=== PATIENT | female | born 1960 | race Hispanic/Latino ===

== ENCOUNTER 2016-08-24 21:37 | Emergency (ER) | payer OTHER ==
[~2016-08-24 21:37] MED LIST: CYCLOBENZAPRINE5 M2 PO; LEVEMIR FLEX100 U/ML SC; NOVOLOG100 U/ML SC
--- NOTE | 2016-08-24 21:42 | ED GENERAL ADULT ---
History of Present Illness General Chief Complaint: Psychiatric Related Complaint Stated Complaint: SI FROM LOCK UP Source: patient, old records, police Exam Limitations: no limitations Vital Signs & Intake/Output Vital Signs & Intake/Output Vital Signs Date Time Temp Pulse Resp B/P Pulse O2 O2 Flow FiO2 Ox Delivery Rate 08/24 2204 98.0 77 18 130/72 99 Room Air Allergies Coded Allergies: MDX - Nka - No Known Allergies (NKA - NO KNOWN ALLERGIES) (08/24/16) Reconcile Medications Cyclobenzaprine HCl 5 MG TABLET 1 TAB PO TIDPRN PRN PAIN Insulin Aspart, Recombinant (Novolog) 100 U/ML DAVIS 10 UNITS SC TIDAC GLUCOSE CONTROL (Reported) Insulin Detemir (Levemir Flexpen) 100 UNIT/ML (3 ML) INSULN.PEN 12 UNITS SC QPM DIABETES (Reported) Triage Nurses Notes Reviewed? yes HPI: Patient involved in an argument with her boyfriend and she was subsequently arrested. Patient told the arresting officer that she might as well thigh. Patient was placed on a PARENT [employer]NER and brought into the emergency department for evaluation. Patient states that she was just very angry at this time and has no thoughts of hurting himself or be else. Patient denies any hallucinations. Patient denies any alcohol or drug abuse. Patient states that her right hand is sore because she dropped a box of callus on her right hand this morning. Patient states the pain is throbbing increases when she makes a fist. There is no radiation of the pain. She rates the pain as part of 10. Patient states that she does not want an x-ray at this time for her hand. Past History Medical History Any Pertinent Medical History? see below for history Neurological: NONE EENT: NONE Cardiovascular: NONE Respiratory: NONE Gastrointestinal: peptic ulcer disease Hepatic: cholecystitis Renal: NONE Musculoskeletal: NONE Psychiatric: NONE Endocrine: diabetes Blood Disorders: NONE Cancer(s): NONE HOTEL DIRECTOR/Reproductive: NONE Surgical History Surgical History: non-contributory Psychosocial History What is your primary language Palestinian Tobacco Use: Never used ETOH Use: denies use Illicit Drug Use: denies illicit drug use Family History Hx Contributory? No Review of Systems Review of Systems Constitutional: Reports: no symptoms. EENTM: Reports: no symptoms. Respiratory: Reports: no symptoms. Cardiovascular: Reports: no symptoms. GI: Reports: no symptoms. Genitourinary: Reports: no symptoms. Musculoskeletal: Reports: see HPI. Skin: Reports: no symptoms. Neurological/Psychological: Reports: see HPI. Hematologic/Endocrine: Reports: no symptoms. Immunologic/Allergic: Reports: no symptoms. All Other Systems: Reviewed and Negative Physical Exam Physical Exam General Appearance: well developed/nourished, alert, awake Head: atraumatic, normal appearance Eyes: Bilateral: PERRL, EOMI. Ears, Nose, Throat: normal pharynx, normal ENT inspection, hearing grossly normal Neck: normal inspection, supple, full range of motion Respiratory: normal breath sounds, chest non-tender, no respiratory distress, lungs clear Cardiovascular: regular rate/rhythm, normal peripheral pulses Gastrointestinal: normal bowel sounds, soft, non-tender, no organomegaly Back: normal inspection, normal range of motion Extremities: normal inspection, normal capillary refill, normal range of motion, no edema Neurologic/Psych: no motor/sensory deficits, awake, alert, oriented x 3, normal gait, normal mood/affect Skin: intact, normal color, warm/dry Lymphatic: no anterior cervical didi Core Measures ACS in differential dx? No CVA/TIA Diagnosis: No Severe Sepsis Present: No Septic Shock Present: No Progress Differential Diagnoses I considered the following diagnoses in my evaluation of the patient: [ Depression, agitation, right hand contusion, right hand fracture] Plan of Care: Patient will go home with her neighbor Initial ED EKG: none Comments: Patient is calm and cooperative. Alert and oriented 3. Patient talks without slurring. Patient walks with a steady gait. Patient is competent to make her own decisions. Patient is not suicidal or homicidal. Patient is not a danger to herself or others at this point. Patient will go home and then stayed with her neighbor kizzy. Patient's neighbors here to pick her up. Patient's neighbor has no concerns regarding her safety and states that she has stayed with her tonight. Departure Departure Disposition: HOME OR SELF CARE Condition: Stable Clinical Impression Primary Impression: Depression Secondary Impressions: Contusion of right hand Referrals: ESTEBAN ELIZABETH APRN (PCP/Family) Additional Instructions: RETURN IF SYMPTOMS WORSEN OR FOR ANY CONCERNS Departure Forms: Customer Survey General Discharge Information Critical Care Note Critical Care Note Critical Care Time: non-applicable
[2016-08-24 22:04] VITALS: BP 130/72
== END 2016-08-24 22:05 ==
LOC: ERH 21:37
DX: S60.221A Contusion of right hand, initial encounter (principal); F32.9 Major depressive disorder, single episode, unspecified; X58.XXXA Exposure to other specified factors, initial encounter